=== PATIENT | female | born 1990 | race Caucasian/White ===

== ENCOUNTER 2017-06-23 08:00 | Inpatient (IN) | payer MEDICAID ==
[~2017-06-23 08:00] MED LIST: METOCLOPRAMIDE 10 MG INJ; ONDANSETRON 4 MG INJ; OXYTOCIN 10 UNIT INJ; OXYTOCIN 30 UNITS/LR 500 ML BAG IV
[2017-06-23] MEDS ORDERED: CARBOPROST 250 MCG INJ IM ×2 (09:30→18:00)
[2017-06-23] MEDS ORDERED: MISOPROSTOL 200 MCG TAB PR ×2 (09:30→18:00)
[2017-06-23] MEDS ORDERED: METHYLERGONOVINE 0.2 MG INJ IM ×2 (09:30→18:00)
[2017-06-23] MEDS: LACTATED RINGER'S 1,000 ML IV ×2 (10:47→12:48)
[2017-06-23 11:03] LABS: ADD MAN DIFF? NO
[2017-06-23 11:06] LABS: BASOPHILS % 0.2 % (0.0-2.0); EOSINOPHILS % 0.3 % (0.0-7.0); HEMATOCRIT 35.9 % (37.0-47.0); HEMOGLOBIN 12.1 g/dl (12.0-16.0); LYMPHOCYTES # 1.7 10^3/ul (0.8-2.9); LYMPHOCYTES % 17.3 % (15.0-51.0); MEAN CORPUSCULAR HEMOGLOBIN 28.1 pg (29.0-33.0); MEAN CORPUSCULAR HGB CONC 33.7 g/dl (32.0-37.0); MEAN CORPUSCULAR VOLUME 83.3 fl (82.0-101.0); MONOCYTE # 0.6 10^3/ul (0.3-0.9); MONOCYTES % 5.8 % (0.0-11.0); NEUTROPHIL # 7.6 10^3/ul (1.6-7.5); NEUTROPHILS % 76.1 % (39.0-77.0); PLATELET COUNT 128 10^3/UL (140-415); RED BLOOD COUNT 4.31 10^6/ul (4.20-5.40)
[2017-06-23 12:02] LABS: HEPATITIS B SURFACE ANTIGEN NEGATIVE (NEGATIVE)
[2017-06-23 12:11] LABS: INR 0.86; PROTIME 11.8 Sec (11.9-14.9); PT RATIO 0.9
[2017-06-23 12:12] LABS: PARTIAL THROMBOPLASTIN TIME 24.7 Sec (25.0-35.0)
[2017-06-23] MEDS ORDERED: FENTAnyl 2MCG/ML-ROPIV 0.2% 100 ML (12:41)
[2017-06-23] MEDS ORDERED: NALOXONE (0.4 MG/ML) INJ IV (13:00)
[2017-06-23] MEDS ORDERED: ZOLPIDEM 5 MG TAB PO (13:00)
[2017-06-23] MEDS ORDERED: DIPHENHYDRAMINE 50 MG INJ IV (13:00)
[2017-06-23] MEDS ORDERED: HYDROmorphONE 0.5 MG/0.5 ML SYG IV ×2 (13:00)
[2017-06-23] MEDS ORDERED: LIDOCAINE 1% (MDV) 20 ML INJ (13:07)
[2017-06-23] MEDS ORDERED: LIDOCAINE 1% (MPF) 30 ML INJ (13:10)
[2017-06-23] MEDS ORDERED: PHENYLephrine (100 MCG/ML) 5ML SYG (13:29)
[2017-06-23] MEDS ORDERED: morphine SULFATE/PF (10 MG/10 ML) INJ (13:37)
[2017-06-23] MEDS: OXYTOCIN 30 UNITS/LR 500 ML IV ×4 (14:20→23:21)
[2017-06-23] MEDS: CEFAZOLIN 2 GM/50 ML (PMX) 50 ML IV (16:00)
[2017-06-23] MEDS ORDERED: OXYCODONE/ACETAMINOPHEN (5/325) TAB PO ×2 (18:00)
[2017-06-23] MEDS ORDERED: HYDROCODONE/APAP (5/325) TAB PO ×2 (18:00)
[2017-06-23] MEDS ORDERED: OXYTOCIN 30 UNITS/LR 500 ML IV (18:00)
[2017-06-23] MEDS: IBUPROFEN 600 MG TAB PO ×2 (18:00→23:58)
[2017-06-23] MEDS: CEFAZOLIN 1 GM/50 ML (PMX) 50 ML IVPB (18:37)
[2017-06-23] MEDS: ONDANSETRON 4 MG INJ IV (19:55)
[2017-06-23 22:52] LABS: RAPID PLASMA REAGIN NONREACTIVE (NR)
[2017-06-24] MEDS: OXYTOCIN 30 UNITS/LR 500 ML IV ×5 (01:55→14:17)
[2017-06-24] MEDS: IBUPROFEN 600 MG TAB PO ×3 (06:00→17:39)
[2017-06-24 08:24] LABS: ADD MAN DIFF? NO
[2017-06-24 08:27] LABS: WHITE BLOOD COUNT 9.9 10^3/ul (4.8-10.8)
[2017-06-24 08:27] LABS: BASOPHILS % 0.1 % (0.0-2.0); HEMATOCRIT 27.8 % (37.0-47.0); HEMOGLOBIN 9.1 g/dl (12.0-16.0); LYMPHOCYTES # 1.4 10^3/ul (0.8-2.9); LYMPHOCYTES % 14.4 % (15.0-51.0); MEAN CORPUSCULAR HGB CONC 32.7 g/dl (32.0-37.0); MEAN CORPUSCULAR VOLUME 85.5 fl (82.0-101.0); MEAN PLATELET VOLUME 12.7 fl (7.4-10.4); MONOCYTE # 0.6 10^3/ul (0.3-0.9); MONOCYTES % 6.4 % (0.0-11.0); NEUTROPHIL # 7.8 10^3/ul (1.6-7.5); NEUTROPHILS % 78.8 % (39.0-77.0); PLATELET COUNT 120 10^3/UL (140-415); RED BLOOD COUNT 3.25 10^6/ul (4.20-5.40); RED CELL DISTRIBUTION WIDTH 13.2 % (11.5-14.5)
[2017-06-24] MEDS: SENNA/DOCUSATE NA (8.6MG/50MG) TAB PO ×2 (12:55→22:43)
[2017-06-24] MEDS: LANOLIN 7 GM TUBE TOP (12:55)
[2017-06-25] MEDS: IBUPROFEN 600 MG TAB PO ×5 (01:36→23:31)
[2017-06-25] MEDS: SENNA/DOCUSATE NA (8.6MG/50MG) TAB PO ×2 (09:41→20:50)
[2017-06-25] MEDS: NA PHOSPHATE/BIPHOS 133 ML ENEMA PR (10:30)
[2017-06-26] MEDS: IBUPROFEN 600 MG TAB PO ×2 (05:39→12:39)
[2017-06-26] MEDS: SENNA/DOCUSATE NA (8.6MG/50MG) TAB PO (07:54)
[2017-06-26] MEDS: DIPHTH/TET/ACEL PERTUSS (ADULT) 0.5 ML VIAL IM* (07:54)
== END 2017-06-26 17:50 | disposition home or self-care (01) | DRG 766 ==
LOC: OBT 08:00 → L-D 08:00 → OBT 09:01 → L-D 09:00 → PP1 17:54
PROVIDERS: Obstetrics & Gynecology
PROC: 10D00Z1 Extraction of Products of Conception, Low, Open Approach (ICD-10-PCS; principal; 2017-06-23 13:30)
PROC: 3E033VJ Introduction of Other Hormone into Peripheral Vein, Percutaneous Approach (ICD-10-PCS; 2017-06-23 13:30)
DX: O34.211 Maternal care for low transverse scar from previous cesarean delivery (principal); Z37.0 Single live birth; Z3A.38 38 weeks gestation of pregnancy
CPT/HCPCS: 85025; 85610; 85730; 86592; 86850; 86900; 86901; 87340; 90715; 99464